=== PATIENT | female | born 1980 | race Hispanic/Latino ===

== ENCOUNTER 2017-10-24 09:20 | Emergency (ER) | payer BC, OTHER ==
[2017-10-24 10:52] LABS: Urine Blood NEGATIVE (NEG); Urine Glucose NEGATIVE (NEG); Urine Protein NEGATIVE (NEG); Urine pH 6.5 (5.0-7.0)
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
== END 2017-10-24 11:30 | disposition home or self-care (01) ==
LOC: ER 09:20
DX: S80.12XA Contusion of left lower leg, initial encounter (principal); V49.49XA Driver injured in collision with other motor vehicles in traffic accident, initial encounter; F41.9 Anxiety disorder, unspecified; Z88.0 Allergy status to penicillin
CPT/HCPCS: 81003; 81025; 99283

== ENCOUNTER 2018-11-28 06:37 | Inpatient (IN) | payer OTHER ==
--- NOTE | 2018-11-27 18:48 | PREOPHP ---
Date of Admission: 11/28/2018 History Of Present Illness: Ms. Aguilar is a 38-year-old female, 4, para 2-0 -1-2, now at 39+ weeks gestation. She is admitted for induction of labor secondary to term with advanced maternal age. She denies recent cough, cold, fever, chills, or UTI symptoms. has been active. She denies any vaginal bleeding or spotting. Past Medical History: Please see record. Family History: Please see record. Review of Systems: She reports no recent cough, cold, fever, or chills. No recent nausea or vomiting. No breast knots or lumps. No significant stomach pains or problems or bladder issues. Physical Examination: General: Short-statured female, in no apparent distress. Neck: Supple without adenopathy or thyromegaly. Lungs: Clear. Cardiac: Regular rate and rhythm without murmurs. Breasts: Not examined. Abdomen: Estimated weight of 7+ pounds. Pelvic: Cervix 1 cm, vertex presentation at -2 station. Extremities: No cyanosis or clubbing, but she does have 1+ lower extremity edema. Impression: Term , advanced maternal age. Plan: The patient will be admitted for induction of labor. SMITH/TAYE Voice ID: [id number]
--- OUTSIDE RECORDS SUMMARY | 2018-11-28 06:38 | XMS REPORT ---
:1980 Author Organization eClinicalWorks Care Team Providers Name Role Phone [facility] Provider Role Unavailable Allergies No Known Allergies Problems Problem Type Condition Code Onset Dates Condition Status Assessment Nodule of right palm R22.31 Active Problem Generalized anxiety disorder F41.1 Active Assessment Generalized anxiety disorder F41.1 Active Medications Medication Code Code Instructions Start End Status Dosage System Date Date Citalopram [facility] [id number] 40 MG Orally Inactive 1 tablet Hydrobromide Once a day Results No Known Results Summary Purpose eClinicalWorks Submission
[2018-11-28] MEDS ORDERED: Ringers Lactate 1,000 ML IV PRN (07:14)
[2018-11-28 07:42] LABS: Absolute Lymphocytes (CBC) 2.1 K/uL (0.7-4.9); Basophils % 0.7 % (0-1.3); Hematocrit 40.7 % (36.0-45.0); Lymphocytes % 27.4 % (15.3-44.8); MPV 11.5 fL (7.6-11.3); RBC Red Blood Cell Count 4.78 M/uL (3.86-4.86)
[2018-11-28 07:45] LABS: Urine Appearance CLEAR; Urine Bilirubin NEGATIVE (NEG); Urine Blood NEGATIVE (NEG); Urine Color YELLOW; Urine Glucose NEGATIVE (NEG); Urine Protein NEGATIVE (NEG); Urine Urobilinogen 0.2 mg/dL (0.2-1.0); Urine pH 6.5 (5.0-7.0)
[2018-11-28 07:46] LABS: Urine Microscopic Reflex NO UMIC
[2018-11-28] MEDS ORDERED: BUTORPHANOL 1 MG/ML INJ IV PRN (07:54)
[2018-11-28] MEDS ORDERED: PROMETHAZINE 25 MG/ML VIAL IV PRN (07:54)
[2018-11-28] MEDS ORDERED: OXYTOCIN/LR 20 UNIT/1,000 ML BAG IV SCH ×2 (08:00→22:00)
[2018-11-28] MEDS ORDERED: Ringers Lactate 1,000 ML IV SCH (08:00)
[2018-11-28 08:09] VITALS: BMI 31.5
[2018-11-28] MEDS ORDERED: FENTANYL CITR 100 MCG/2 ML IV ONE (13:26)
[2018-11-28] MEDS ORDERED: ROPIVACAINE HCL 100 ML IV ONE (13:31)
[2018-11-28] MEDS ORDERED: ROPIVACAINE HCL 2 MG/ML 100ML IV ONE (13:31)
[2018-11-28] MEDS ORDERED: ROPIVACAINE HCL 20 ML ONE (14:31)
[2018-11-28] MEDS ORDERED: EPHEDRINE SULF 50 MG/ML VIAL ONE (15:24)
[2018-11-28] MEDS ORDERED: LIDOCAINE 1% MPF 30 ML VIAL ONE (19:39)
[2018-11-28] MEDS ORDERED: METHYLERGONOVINE 0.2MG/ML AMP IM ONE (19:40)
[2018-11-28] MEDS ORDERED: CARBOPROST TROME 250 MCG/ML IM ONE (19:40)
[2018-11-28] MEDS ORDERED: METHYLERGONOVINE 0.2MG/ML AMP IM PRN (21:40)
[2018-11-28] MEDS ORDERED: ONDANSETRON 4 MG (ODT) TAB PO PRN (21:40)
[2018-11-28] MEDS ORDERED: CARBOPROST TROME 250 MCG/ML IM PRN (21:40)
[2018-11-28] MEDS ORDERED: ACETAMINOPHEN 500 MG TAB PO PRN (21:40)
[2018-11-28] MEDS ORDERED: METHYLERGONOVINE 0.2 MG TAB PO PRN (21:40)
--- NOTE | 2018-11-28 21:43 | P.BOP ---
Preoperative diagnosis: 39wk , AMA Postoperative diagnosis: same, delivery viable female infant Primary procedure: SCVD Secondary procedure: manual removal of placenta, brief endometrial curretage Estimated blood loss: 300 Anesthesia: epidural Transferred to: Other (272) Condition: Good
[2018-11-28] MEDS: IBUPROFEN 200 MG TAB PO PRN (22:52)
[2018-11-29 00:14] LABS: RPR (Rapid Plasma Reagin) NON-REACT (NON-REACT)
[2018-11-29 04:47] LABS: Absolute Lymphocytes (CBC) 1.6 K/uL (0.7-4.9); Basophils % 0.3 % (0-1.3); Hematocrit 36.8 % (36.0-45.0); Lymphocytes % 10.4 % (15.3-44.8); MPV 11.4 fL (7.6-11.3)
[2018-11-29 05:25] LABS: Blood Morphology Comment NOT SEEN (NOT SEEN); Platelet Estimate ADEQ; Urine White Blood Cell Casts OK
[2018-11-29] MEDS: IBUPROFEN 200 MG TAB PO PRN (07:15)
--- NOTE | 2018-11-29 23:39 | DN ---
Surgeon: Mateo Garrett MD Patient is a 38-year-old female, 3, para 2-0-0-2 at 39+ weeks gestation, adm itted for induction of labor secondary to term and advanced maternal age. She had a first stage of labor of 8 hours and 17 minutes, second stage of labor of 38 minutes. She delivered by spon taneous controlled vaginal delivery a 5 pounds 12 ounce female infant, 9 and 9 in vertex OA pre sentation. The was delivered. Cord was clamped, cut, and the infant placed on mother's upper abdomen. Cord blood was obtained. Placenta had to be manually removed from the cord from the placenta. Brief curettage was performed to ensure no retained placental fragments were noted. The patient suffered no lacerations. She delivered with epidural anesthesia after receiving 1 mg of Stadol and 12.5 mg of Phenergan IV x1 earlier in her labor course. Estimated total blood loss was le ss than 300 cc. SMITH/TAYE Voice ID: [id number] Report ID: [id number]
[2018-11-30 00:37] VITALS: TEMP 97.6
[2018-11-30] MEDS: IBUPROFEN 200 MG TAB PO PRN (02:11)
[2018-11-30 04:19] VITALS: BP 109/68
[2018-12-01 05:06] LABS: HBsAG Nonreactive (Nonreactive)
--- NOTE | 2018-12-01 06:11 | DS ---
Date of Discharge: 11/30/2018 Final Hospital Discharge Diagnoses: 39 week , delivered; possible intrauterine growth restriction, advanced maternal age Complications: None. Procedures: Artificial rupture of membranes, Pitocin induction of labor, spontaneous controlled vaginal delivery of viable female infant. Hospital Course: The patient is a 38-year-old female, 3, para 2-0-0-2 at 39 weeks gestation who underwent induction of labor secondary to term with advanced maternal age. She delivered a 5 pounds 12 ounces female , 9 and 9 with epidural anesthesia. She was dismissed on the first day, ambulatory, on a select diet with routine post vaginal delivery activity restrictions. Lab work included an admission hemoglobin and hematocrit of 13.8 and 40.7, dismissal 12.7 and 36.8. She is Rh positive blood type. Rubella immune. She was dismissed to take ibuprofen or Tylenol for pain relief, to be seen back in my office in 1 week and to continue taking her iron and vitamins. SMITH/TAYE Voice ID: [id number] Report ID: [id number] MTDNicolas
== END 2018-11-30 07:45 | disposition home or self-care (01) | DRG 768 ==
LOC: 2ND-WC 06:37
PROVIDERS: ADMIT Specialist; ATTEND Specialist
PROC: 10D17Z9 Manual Extraction of Products of Conception, Retained, Via Natural or Artificial Opening (ICD-10-PCS; principal; 2018-11-28)
PROC: 0UDB7ZZ Extraction of Endometrium, Via Natural or Artificial Opening (ICD-10-PCS; 2018-11-28)
PROC: 10E0XZZ Delivery of Products of Conception, External Approach (ICD-10-PCS; 2018-11-28)
DX: O36.5930 Maternal care for other known or suspected poor fetal growth, third trimester, not applicable or unspecified (principal); Z37.0 Single live birth; Z3A.39 39 weeks gestation of pregnancy; O73.1 Retained portions of placenta and membranes, without hemorrhage
CPT/HCPCS: 36415; 81003; 85025; 86592; 86850; 86900; 86901; 87340; J0595; J2210; J2550; J2590; J2795; J3010